=== PATIENT | female | born 1985 | race Caucasian/White ===

== ENCOUNTER 2018-09-27 09:13 | Emergency (ER) | payer OTHER ==
[2018-09-27 09:18] VITALS: BP 119/79; PULSE 73; TEMP 98.5; BMI 21.6
[2018-09-27] MEDS ORDERED: NAPROXEN 500 MG TABLET (FP) PO ONE (09:37)
[2018-09-27] MEDS ORDERED: CYCLOBENZAPRINE HCL 5 MG TABLET PO ONE ×2 (09:37→11:09)
[2018-09-27] MEDS ORDERED: NAPROXEN 500 MG TABLET (FP) ONE (09:41)
[2018-09-27] MEDS ORDERED: CYCLOBENZAPRINE HCL 10 MG TABLET (FP) ONE ×2 (09:41→11:22)
--- NOTE | 2018-09-27 09:47 | PDOC ---
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 At approximately 8:15 am, she slipped on water at her work. Denies antecedent symptoms prior to the fall. She caught herself on the counter with her left arm. Immediately afterwards, she had left medial scapular pain with ROM and deep breaths localized to that region. Denies LOC and head trauma. Did not land on the floor. Did not hit her back. Denies the following: chest pain, SOB, nausea, headaches, abdominal pain, dysuria, hematuria, diarrhea, and leg pain/swelling. Meds: None Allergies: NKDA Shx: breast augmentation Social: Denies tobacco, alcohol, and substance abuse. <Heron Sutton - Last Filed: 09/27/18 19:09> - General Chief Complaint: Injury Stated Complaint: BACK PAIN Time Seen by Provider: 09/27/18 09:14 Past History <Terrance Xiao - Last Filed: 09/27/18 12:02> - Past Medical History COPD: No - Suicide/Smoking/Psychosocial Hx Smoking History: Never smoked Have you smoked in the past 12 months: No Information on smoking cessation initiated: No Hx Alcohol Use: No <Heron Sutton - Last Filed: 09/27/18 19:09> - Past Medical History Allergies/Adverse Reactions: Allergies Allergy/AdvReac Type Severity Reaction Status Date / Time No Known Allergies Allergy Verified 09/27/18 09:14 Home Medications: Ambulatory Orders Naproxen 250 mg PO Q6H #12 tablet 09/27/18 Review of Systems - Review of Systems Able to Perform ROS?: Yes Is the patient limited Faroese proficient: No Constitutional: No: Chills, Diaphoresis, Fever, Weakness HEENTM: No: Eye Pain, Ear Pain, Nose Pain, Throat Pain, Mouth Pain Respiratory: No: Cough, Shortness of Breath Cardiac (ROS): No: Chest Pain, Lightheadedness, Palpitations, Syncope, Chest Tightness ABD/GI: No: Constipated, Diarrhea, Nausea, Rectal Bleeding, Vomiting, Tarry Stools : No: Burning, Dysuria, Hematuria, Incontinence Musculoskeletal: Yes: Back Pain. No: Joint Pain, Neck Pain Integumentary: No: Bruising, Erythema, Rash Neurological: No: Headache, Tingling, Tremors Psychiatric: No: Change in Appetite Endocrine: No: Unexplained Weight Gain Hematologic/Lymphatic: No: Anemia <Heron Sutton - Last Filed: 09/27/18 19:09> *Physical Exam - Vital Signs Last Vital Signs Temp Pulse Resp BP Pulse Ox 98.5 F 73 18 119/79 100 09/27/18 09:13 09/27/18 09:13 09/27/18 09:13 09/27/18 09:13 09/27/18 09:13 <Terrance Xiao - Last Filed: 09/27/18 12:02> - Vital Signs Last Vital Signs Temp Pulse Resp BP Pulse Ox 98.5 F 73 18 119/79 100 09/27/18 09:13 09/27/18 09:13 09/27/18 09:13 09/27/18 09:13 09/27/18 09:13 - Physical Exam General Appearance: Yes: Nourished, Appropriately Dressed. No: Apparent Distress, Alcohol on Breath, Intoxicated HEENT: positive: EOMI, JOSE, Normal Voice, Symmetrical, Pharynx Normal, Hearing Grossly Normal. negative: Pale Conjunctivae, Scleral Icterus (R), Scleral Icterus (L), Muffled/Hoarse voice, Pharyngeal Erythema, Tonsillar Exudate, Tonsillar Erythema, Excessive drooling Neck: positive: Trachea midline, Supple. negative: Tender, Lymphadenopathy (R) , Lymphadenopathy (L), Tender lateral, Tender midline Respiratory/Chest: positive: Lungs Clear, Normal Breath Sounds, Other (poor inspiratory effort due to pain). negative: Chest Tender, Respiratory Distress, Accessory Muscle Use Cardiovascular: positive: Regular Rhythm, Regular Rate, S1, S2. negative: Systolic Murmur Gastrointestinal/Abdominal: positive: Normal Bowel Sounds, Flat, Soft. negative : Tender Lymphatic: negative: Adenopathy Musculoskeletal: positive: Normal Inspection, Other (tenderness to palpation at the rhomboids on the left side (T3-5 region). Pain with ROM of abduction greater than 90 degrees. Intact ROM in other directions without difficulties or pain. ). negative: CVA Tenderness, Vertebral Tenderness Extremity: positive: Normal Capillary Refill, Normal Inspection, Normal Range of Motion. negative: Tender, Swelling, Calf Tenderness Integumentary: positive: Normal Color, Dry, Warm Neurologic: positive: pulmonary physical therapist II-XII NML intact, Alert, Normal Mood/Affect, Normal Response, Motor Strength 5/5 <LesleyHeron - Last Filed: 09/27/18 19:09> ED Treatment Course - Medications Given in the ED: ED Medications Discontinued Medications Generic Name Dose Route Start Last Admin Trade Name Nick PRN Reason Stop Dose Admin Cyclobenzaprine HCl 5 mg 09/27/18 09:37 09/27/18 09:45 Cyclobenzaprine Hcl PO 09/27/18 09:38 5 mg ONCE ONE Administration Cyclobenzaprine HCl 5 mg 09/27/18 11:09 09/27/18 11:28 Cyclobenzaprine Hcl PO 09/27/18 11:10 5 mg ONCE ONE Administration Lidocaine 1 patch 09/27/18 11:08 09/27/18 11:28 Lidoderm Patch - TP 09/27/18 11:09 1 patch ONCE ONE Administration Naproxen 500 mg 09/27/18 09:37 09/27/18 09:45 Naprosyn - PO 09/27/18 09:38 500 mg ONCE ONE Administration <Terrance Xiao - Last Filed: 09/27/18 12:02> Medical Decision Making - Medical Decision Making 09/27/18 09:55 33 yo F with no past medical history [facility] Initial vitals Initial Vital Signs Temp Pulse Resp BP Pulse Ox 98.5 F 73 18 119/79 100 09/27/18 09:13 09/27/18 09:13 09/27/18 09:13 09/27/18 09:13 09/27/18 09:13 Work up: patient presents s/p fall with ability to catch her self without striking her back. new onset of immediate pain after catching herself. Likely msk strain vs fracture of ribs. will order chest pa lateral to rule out ptx and gross fractures. interventions include naproxen and flexiril. Patient was reassessed. given lidoderm patch. Per the patient, she feels well enough for discharge. Able to ambulate out of the department on her own volition. 09/27/18 19:08 <Heron Sutton - Last Filed: 09/27/18 19:09> *DC/Admit/Observation/Transfer <Terrance Xiao - Last Filed: 09/27/18 12:02> <Heron Sutton - Last Filed: 09/27/18 19:09> Diagnosis at time of Disposition: Muscle strain, Fall due to wet surface, Back pain - Discharge Dispostion Disposition: HOME Condition at time of disposition: Improved - Prescriptions Prescriptions: Naproxen 250 mg PO Q6H #12 tablet - Patient Instructions Printed Discharge Instructions: DI for Thoracic Back Pain Additional Instructions: Take the prescribed naproxen every 6 hours for pain. Take with a large glass of water. Do not take advil, motrin, ibuprofen, aleve, or any other NSAID medication if you are taking naproxen as it can cause damage to the kidneys. Follow up with your primary care doctor within 2-3 days Return to the emergency department if you have any new, worsening, or concerning symptoms. - Post Discharge Activity Forms/Work/School Notes: Back to Work
--- NOTE | 2018-09-27 10:20 | PDOC ---
Attending Attestation - Resident Resident Name: Heron Sutton - ED Attending Attestation I have performed the following: I have examined & evaluated the patient, The case was reviewed & discussed with the resident, I agree w/resident's findings & plan, Exceptions are as noted - HPI HPI: 09/27/18 10:15 Agree with resident HPI - Physicial Exam PE: 09/27/18 10:16 GENERAL: Awake, alert, and fully oriented, in no acute distress HEAD: No signs of trauma EYES: PERRLA, EOMI, sclera anicteric, conjunctiva clear ENT: Auricles normal inspection, hearing grossly normal, nares patent, oropharynx clear without exudates. Moist mucosa NECK: Normal ROM, supple, no lymphadenopathy, JVD, or masses LUNGS: Breath sounds equal, clear to auscultation bilaterally. No wheezes, and no crackles HEART: Regular rate and rhythm, normal S1 and S2, no murmurs, rubs or gallops ABDOMEN: Soft, nontender, normoactive bowel sounds. No guarding, no rebound. No masses EXTREMITIES: Normal range of motion, no edema. No clubbing or cyanosis. No cords, erythema, or tenderness. WWP. BACK: No midline cervical, thoracic, or lumbar ttp, stepoffs, or deformities. + pinpoint ttp to left mid rhomboid. NEUROLOGICAL: Normal speech, cranial nerves intact, negative pronator drift, 5/ 5 strength in all 4 extremities, normal sensation to light touch in all 4 extremities, normal cerebellar exam, normal gait, normal tone SKIN: Warm, Dry, normal turgor, no rashes or lesions noted. - Medical Decision Making 09/27/18 10:17 33yo F presents to the ED with L upper thoracic pain after she used her arm to catch her body weight after slipping on water at work No direct impact to her entire back Pain worse with ROM of LUE, LUE is NVI with normal strength/sensation throughout , WWP, and 2+ pulses. Likely muscular pain, alysha given rhomboid ttp on exam but given pleuritic nature of pain, will obtain CXR to r/o PTX or bony injury Pt states LMP was 2 weeks ago, no chance that she is As such, will order naproxen, flexeril, and reassess 09/27/18 12:00 Pain improved after second dose of flexeril 5mg, lidoderm patch CXR negative for acute pathology Likely muscle spasm/strain, plan for symptom control, clinically stable for DC I discussed the physical exam findings, ancillary test results and final diagnoses with the patient. I answered all of the patient's questions. The patient was satisfied with the care received and felt comfortable with the discharge plan and treatment plan. The patient will call their primary care physician within 24 hours to arrange follow-up and will return to the Emergency Department with any new, persistent or worsening symptoms.
[2018-09-27] MEDS ORDERED: LIDOCAINE 5% TOPICAL PATCH TP ONE (11:08)
[2018-09-27] MEDS ORDERED: LIDOCAINE 5% TOPICAL PATCH ONE (11:22)
[2018-09-27] MEDS ORDERED: LIDOCAINE PATCH REMOVAL MC SCH (22:00)
== END 2018-09-27 12:10 | disposition home or self-care (01) ==
LOC: FER 09:13
DX: T14.8XXA Other injury of unspecified body region, initial encounter (principal); W19.XXXA Unspecified fall, initial encounter; Y93.89 Activity, other specified; Y92.89 Other specified places as the place of occurrence of the external cause; Y99.0 Civilian activity done for income or pay; M54.9 Dorsalgia, unspecified
CPT/HCPCS: 71046-TC-FY; 99282-25

== ENCOUNTER 2023-06-06 19:19 | Emergency (ER) | payer OTHER ==
[2023-06-06 19:37] VITALS: BP 125/75; PULSE 80; RESP 16; TEMP 98; BMI 26.4
[2023-06-06] MEDS ORDERED: IBUPROFEN 600 MG TABLET (FP) PO ONE (19:56)
[2023-06-06] MEDS: IBUPROFEN 600 MG TABLET (FP) PO ONE (19:58)
== END 2023-06-06 20:44 | disposition home or self-care (01) ==
LOC: FER 19:19
DX: M25.561 Pain in right knee (principal); M25.562 Pain in left knee; X58.XXXA Exposure to other specified factors, initial encounter; Y99.0 Civilian activity done for income or pay
CPT/HCPCS: 73562-TC-LT-FY; 73562-TC-RT-FY; 81025; 99284-25